=== PATIENT | female | born 1960 | race Caucasian/White ===

== ENCOUNTER 2022-06-05 09:47 | Outpatient (CLI) | payer BC | END 2022-06-05 09:48 | disposition home or self-care (01) | LOC: CSHRAD 09:47 | PROVIDERS: ATTEND Family Medicine | DX: J20.9 Acute bronchitis, unspecified (principal) | CPT/HCPCS: 71046 ==

== ENCOUNTER 2022-09-05 13:37 | Outpatient (CLI) | payer BC | END 2022-09-05 13:38 | disposition home or self-care (01) | LOC: CSHMAMMO 13:37 | PROVIDERS: ATTEND Internal Medicine | DX: Z12.31 Encounter for screening mammogram for malignant neoplasm of breast (principal) | CPT/HCPCS: 77063; 77067 ==

== ENCOUNTER 2023-02-20 10:33 | Outpatient (CLI) | payer BC | END 2023-02-20 10:34 | disposition home or self-care (01) | LOC: CSHRAD 10:33 | PROVIDERS: ATTEND Internal Medicine | DX: J40 Bronchitis, not specified as acute or chronic (principal) | CPT/HCPCS: 71046 ==

== ENCOUNTER 2023-11-15 12:07 | Outpatient (CLI) | payer BC | END 2023-11-15 12:08 | disposition home or self-care (01) | LOC: CSHULT 12:07 | PROVIDERS: ATTEND Internal Medicine | DX: Z84.1 Family history of disorders of kidney and ureter (principal) | CPT/HCPCS: 76770 ==

== ENCOUNTER 2023-11-20 12:41 | Outpatient (CLI) | payer BC | END 2023-11-20 12:42 | disposition home or self-care (01) | LOC: CSHULT 12:41 | PROVIDERS: ATTEND Internal Medicine | DX: R07.89 Other chest pain (principal); R00.2 Palpitations | CPT/HCPCS: 93306 ==

== ENCOUNTER 2023-11-26 09:19 | Outpatient (CLI) | payer BC | END 2023-11-26 09:20 | disposition home or self-care (01) | LOC: CSHMAMMO 09:19 | PROVIDERS: ATTEND Internal Medicine | DX: R92.1 Mammographic calcification found on diagnostic imaging of breast (principal) | CPT/HCPCS: G0279 ==